=== PATIENT | male | born 1955 | race Caucasian/White ===

== ENCOUNTER 2023-04-28 15:47 | Outpatient (CLI) | payer MEDICARE | END 2023-04-28 23:59 | disposition critical access hospital (66) | LOC: EMS 15:47 | DX: S01.112A Laceration without foreign body of left eyelid and periocular area, initial encounter (principal); R46.4 Slowness and poor responsiveness; W01.0XXA Fall on same level from slipping, tripping and stumbling without subsequent striking against object, initial encounter; Y92.008 Other place in unspecified non-institutional (private) residence as the place of occurrence of the external cause | CPT/HCPCS: A0425; A0429 ==

== ENCOUNTER 2023-04-28 16:18 | Emergency (ER) | payer MEDICARE, OTHER ==
--- NOTE | 2023-04-28 16:25 | ED Physician Documentation ---
History of Present Illness - Stated complaint Stated Complaint: GLF/HEAD INJ - Chief complaint Chief Complaint: Trauma Hd/Nk - Additonal information Additional information: 68-year-old male presents emergency department for evaluation of altered mental status after ground-level fall. Reportedly had been at a friend's house today shooting pool and had had 3 beers. When he returned home there was a large UPS box near the garage. It contained heavy fireplace implements. He picked it up and was walking but tripped lost his balance falling forward striking his head on the hard concrete. There was no loss of consciousness but reportedly a large pool of blood on the ground. The patient has a large approximately 7 cm laceration above the left eye. Per and EMS on the scene the patient has a very flat affect and slow to respond to questions but is not focal or confused otherwise. He is not anticoagulated though does take a daily aspirin for history of previous SC. He is hypertensive 176/103. Review of Systems Constitutional: denies: Fever, Chills Cardiac: reports: Reviewed and negative Respiratory: reports: Reviewed and negative : reports: Reviewed and negative Skin: reports: Laceration (s) Musculoskeletal: reports: Reviewed and negative Neurologic: reports: Confused, Head injury PD PAST MEDICAL HISTORY - Allergies Allergies/Adverse Reactions: Allergies Allergy/AdvReac Type Severity Reaction Status Date / Time tetracycline Allergy Unknown Verified 04/28/23 16:23 PD ED PE NORMAL - General General: Alert and oriented X 3, No acute distress, Well developed/nourished - HEENT HEENT: Other (negative for racoon eyes, batle sign, hemotympanum). No: Atraumatic (Large 7 cm laceration above the left eyebrow, horizontal) - Cardiac Cardiac: RRR, No murmur - Respiratory Respiratory: No respiratory distress, Clear bilaterally - Abdomen Abdomen: Normal bowel sounds, Soft - Back Back: No CVA TTP - Derm Derm: Normal color, Warm and dry, Other (large left eye laceration 7cm horozontal) - Extremities Extremities: No deformity - Neuro Neuro: Alert and oriented X 3, health sciences manager 2-12 intact, Other (Alert though flat affect and very slow to respond to questions though when prompted he does answer all questions correctly and performs tasks normally) Eye Opening: Spontaneous Motor: Obeys Commands Verbal: Oriented GCS Score: 15 Results - Vitals Vitals: Vital Signs - 24 hr 09/15/23 16:20 Temperature 36.7 C Heart Rate 94 Respiratory 14 Rate Blood Pressure 176/103 H O2 Saturation 96 - Labs Labs: Laboratory Tests 04/28/23 04/28/23 04/28/23 16:31 16:31 16:31 WBC 5.0 RBC 3.83 L Hgb 12.6 L Hct 35.5 L MCV 92.7 MCH 32.9 H MCHC 35.5 RDW 12.2 Plt Count 275 MPV 9.5 Neut # (Auto) 3.1 Lymph # (Auto) 1.1 L Caroline # (Auto) 0.4 Eos # (Auto) 0.3 Baso # (Auto) 0.0 Absolute Nucleated RBC 0.00 Nucleated RBC % 0.0 APTT 29.3 Sodium 139 Potassium 3.1 L Chloride 104 Carbon Dioxide 26 Anion Gap 9.0 BUN 15 Creatinine 1.1 Estimated GFR (MDRD) 66 L Glucose 106 H Calcium 8.7 Total Bilirubin 0.5 AST 17 ALT 13 Alkaline Phosphatase 50 Total Protein 6.9 Albumin 3.9 Globulin 3.0 Albumin/Globulin Ratio 1.3 Lipase 43 Urine Color Urine Clarity Urine pH Ur Specific Golden Urine Protein Urine Glucose (UA) Urine Ketones Urine Occult Blood Urine Nitrite Urine Bilirubin Urine Urobilinogen Ur Leukocyte Esterase Ur Microscopic Review Urine Culture Comments Ethyl Alcohol 47.4 04/28/23 17:31 WBC RBC Hgb Hct MCV MCH MCHC RDW Plt Count MPV Neut # (Auto) Lymph # (Auto) Caroline # (Auto) Eos # (Auto) Baso # (Auto) Absolute Nucleated RBC Nucleated RBC % APTT Sodium Potassium Chloride Carbon Dioxide Anion Gap BUN Creatinine Estimated GFR (MDRD) Glucose Calcium Total Bilirubin AST ALT Alkaline Phosphatase Total Protein Albumin Globulin Albumin/Globulin Ratio Lipase Urine Color YELLOW Urine Clarity CLEAR Urine pH 7.0 Ur Specific Golden 1.010 Urine Protein NEGATIVE Urine Glucose (UA) NEGATIVE Urine Ketones NEGATIVE Urine Occult Blood TRACE-INTA Urine Nitrite NEGATIVE Urine Bilirubin NEGATIVE Urine Urobilinogen 0.2 (NORMAL) Ur Leukocyte Esterase NEGATIVE Ur Microscopic Review NOT INDICATED Urine Culture Comments NOT INDICATED Ethyl Alcohol - Rads (name of study) cxr Relevant Findings:: Final report received (no acute cardiopulmonary findings) MRI brain Relevant Findings:: Final report received (Indigo Larkin any forehead scalp hematoma seen. To the limits of MRI, no acute intracranial hemorrhage is identified. No findings of acute or subacute infarction are seen.) Procedures - Laceration (location) left forehead laceration Length in cm: 6 Wound type: Linear, Into subcut fat, Clean Neurovascular status: Sensory intact Anesthesia: Lidocaine 1% Wound preparation: Irrigated copiously NS Skin layer closure: Nylon, Running, Size #-0 - enter number (4), Sutures - enter # (10) Other: Patient tolerated well, Dressing applied, Tetanus UTD PD Medical Decision Making - ED course Complexity details: reviewed results, re-evaluated patient, d/w patient ED course: 68-year-old male here for evaluation of a ground-level fall and head trauma when he tripped while carrying a head to the box. He struck his head on concrete and has a large laceration above his left eyebrow. He presents nonfocal but is mildly confused, slow to respond and with a flat affect. The patient was taken almost immediately to the CAT scanner for evaluation of intracranial trauma unfortunately the CT scanner broke while the patient was on the table and he was return to the emergency department. We do have MRI availability at this time and I have ordered an MRI of the brain to rule out intracranial hemorrhage. The patient is mildly anxious and will be administered 1 mg of Ativan for anxiolysis. 1915: MRI has been completed and interpreted as negative by the radiologist for findings of acute intracranial hemorrhage though this is not the gold standard to identify intracranial bleeds. Patient's forehead laceration has been repaire d. While here in the emergency department he has become more bright, alert and interactive. I discussed with his that constellation of symptoms likely indicates he has a fairly moderate concussion. She does feel comfortable with discharge of the patient at this time. We discussed the usual emergent return precautions for concerns of altered mentation, increased lethargy, slurred speech, facial droop or acute headaches. Departure - Departure Disposition: 01 Home, Self Care Clinical Impression: Fall from ground level Laceration of forehead Qualifiers: Encounter type: initial encounter Qualified Code(s): S01.81XA - Laceration without foreign body of other part of head, initial encounter Traumatic hematoma of forehead Qualifiers: Encounter type: initial encounter Qualified Code(s): S00.83XA - Contusion of other part of head, initial encounter Concussion Qualifiers: Encounter type: initial encounter Loss of consciousness presence/duration: without LOC Qualified Code(s): S06.0X0A - Concussion without loss of consciousness, initial encounter Condition: Stable Record reviewed to determine appropriate education?: Yes Instructions: ED Hematoma, Brain Injury Mild Traum Concussion Comments: Kirby fell at home struck his head on the concrete garage floor and sustained a large left forehead laceration. The sutures in his forehead should be removed in about 10 days time. He can shower normally. After showering pat dry and apply antibiotic ointment and a simple bandage. He will have a large area of bruising around this laceration that will likely take 1 to 2 weeks to resolve. We did not have CT availability at the time of your ED visit. We did do an MRI of the brain which did not show any findings of intercranial bleeding or strokes. Kirby should return immediately to the emergency department if he develops any sudden severe headache, is excessively sleepy, has slurred speech, facial droop, arm or leg weakness or you have any concerns that he has an altered mental status. Please discuss this ED visit with his primary care provider. While he is recovering from his concussion he should avoid drinking alcohol or driving. Forms: PCP List
[2023-04-28] MEDS ORDERED: TETANUS/DIPHTHERIA/PERTUSSIS 0.5 ML SYRINGE IM ONE (16:34)
[2023-04-28 16:38] LABS: BASOPHILS % (AUTO) 0.6 %; EOSINOPHILS # (AUTO) 0.3 10^3/uL (0.0-0.7); EOSINOPHILS % (AUTO) 5.4 %; HCT - HEMATOCRIT 35.5 % (42.0-52.0); HGB - HEMOGLOBIN 12.6 g/dL (14.0-18.0); LYMPHOCYTES # (AUTO) 1.1 10^3/uL (1.5-3.5); LYMPHOCYTES % (AUTO) 22.2 %; MEAN CORPUSCULAR HEMOGLOBIN 32.9 pg (27.0-31.0); MEAN CORPUSCULAR HGB CONC 35.5 g/dL (32.0-36.0); MEAN CORPUSCULAR VOLUME 92.7 fL (80.0-94.0); MEAN PLATELET VOLUME 9.5 fL (7.4-11.4); MONOCYTES # (AUTO) 0.4 10^3/uL (0.0-1.0); MONOCYTES % (AUTO) 8.4 %; NEUTROPHILS # (AUTO) 3.1 10^3/uL (1.5-6.6); PLT - PLATELET COUNT 275 10^3/uL (130-450); RED BLOOD COUNT 3.83 10^6/uL (4.70-6.10); RED CELL DISTRIBUTION WIDTH 12.2 % (12.0-15.0)
--- NOTE | 2023-04-28 16:39 | XRAY Report ---
PROCEDURE: Chest 1 View X-Ray INDICATIONS: chest pain TECHNIQUE: One view of the chest was acquired. COMPARISON: None. FINDINGS: Surgical changes and devices: None. Lungs and pleura: No pleural effusions or pneumothorax. Lungs are clear. Mediastinum: Mediastinal contours appear normal. Heart size is normal. Bones and chest wall: No suspicious bony lesions. Overlying soft tissues appear unremarkable. IMPRESSION: No acute cardiopulmonary process. Reviewed by: Vijay Kaplan MD on 04/28/2023 4:37 PM PDT Approved by: Vijay Kaplan MD on 04/28/2023 4:37 PM PDT Station ID: [id number]
[2023-04-28 16:52] LABS: ALBUMIN 3.9 g/dL (3.2-5.5); ALBUMIN/GLOBULIN RATIO 1.3 (1.0-2.2); BILIRUBIN,TOTAL 0.5 mg/dL (0.2-1.0); CALCIUM 8.7 mg/dL (8.5-10.3); CREATININE 1.1 mg/dL (0.6-1.2); ETOH - ETHANOL 47.4 mg/dL; POTASSIUM 3.1 mmol/L (3.5-5.0); TOTAL PROTEIN 6.9 g/dL (6.7-8.2)
[2023-04-28] MEDS ORDERED: LORazepam 2 MG/ML VIAL IVP STA (17:14)
[2023-04-28] MEDS ORDERED: POTASSIUM BICARB 25 MEQ TABLET PO STA (17:42)
[2023-04-28 18:08] LABS: BILIRUBIN,URINE NEGATIVE (NEGATIVE); GLUCOSE, URINE (UA) NEGATIVE (NEGATIVE); KETONES,URINE (UA) NEGATIVE (NEGATIVE); LEUKOCYTE ESTERASE, URINE NEGATIVE (NEGATIVE); NITRITE,URINE NEGATIVE (NEGATIVE); OCCULT BLOOD,URINE TRACE-INTA (NEGATIVE); PROTEIN,URINE NEGATIVE (NEGATIVE); UROBILINOGEN,URINE 0.2 (NORMAL) E.U./dL (NORMAL)
[2023-04-28 18:09] LABS: CLARITY,URINE CLEAR (CLEAR)
--- NOTE | 2023-04-28 18:40 | MRI Report ---
PROCEDURE: BRAIN WO INDICATIONS: glf; eval for bleeding TECHNIQUE: Noncontrast axial T1 spin echo, axial T2 fast spin echo, sagittal and axial FLAIR, coronal T2 fast sp in echo, axial gradient echo, axial diffusion and ADC through the brain. COMPARISON: No prior studies are available for review at the time of this dictation. FINDINGS: Image quality: Excellent. CSF Spaces: Basal cisterns are patent. No extra-axial fluid collections. Ventricles are normal in size and shape. Brain: No intracranial masses or hemorrhage. Giron/white matter interface is normal. Brainstem appe ars normal. Diffusion-weighted images demonstrate no acute ischemic insult. No chronic ischemic ins ults. Normal intravascular flow voids are present. Skull and face: There is a forehead scalp hematoma seen. Calvarium has normal marrow signal. Orbits appear normal. Sinuses: Moderate bilateral mastoid air cell fluid can be seen. There is moderate mucosal thickening within the inferior right maxillary sinus. Prior bilateral antrectomy change can be seen. IMPRESSION: Forehead scalp hematoma seen. To the limits of MRI, no acute intracranial hemorrhage is identified. No findings of acute or subacute infarction are seen. Moderate bilateral mastoid air cell fluid can be seen. Additional findings: Focal right maxillary sinus disease Bilateral antrectomy Reviewed by: Balta Christensen MD on 04/28/2023 5:38 PM AKLIZ Approved by: Balta Christensen MD on 04/28/2023 5:38 PM AKLIZ Station ID: [id number]
[2023-04-28 19:20] VITALS: BP 171/88; O2SAT 99
== END 2023-04-28 19:37 | disposition home or self-care (01) ==
LOC: EDUNIT# → ED 16:18
DX: S06.0X0A Concussion without loss of consciousness, initial encounter (principal); S01.81XA Laceration without foreign body of other part of head, initial encounter; W01.198A Fall on same level from slipping, tripping and stumbling with subsequent striking against other object, initial encounter; Y93.89 Activity, other specified; Y92.009 Unspecified place in unspecified non-institutional (private) residence as the place of occurrence of the external cause; F41.9 Anxiety disorder, unspecified
CPT/HCPCS: 12014; 36415; 70551; 71045; 80053; 81003; 83690; 85025; 85730; 90471; 90715; 96374; 99283; 99284; A9270; G0480; J2060; 80320; 81001; 87086